=== PATIENT | male | born 1980 | race Asian ===

== ENCOUNTER 2020-05-25 19:47 | Emergency (ER) | payer OTHER ==
[~2020-05-25] VITALS: Ht 160 cm; Wt 52.0 kg
[2020-05-25 20:59] LABS: BASO % 0 % (0-3); EOS % 0 % (0-3); HEMATOCRIT 40.9 % (39.0-53.0); HEMOGLOBIN 14.2 g/dL (13.0-17.5); LYMPH # 1.2 x10^3/uL (1.0-4.8); LYMPH % 9 % (24-48); MEAN CORPUSCULAR HEMOGLOBIN 30 pg (25-35); MEAN CORPUSCULAR HGB CONC 35 g/dL (31-37); MEAN CORPUSCULAR VOLUME 86 fL (79-100); MONO % 7 % (0-9); NEUT # 11.8 x10^3/uL (1.8-7.7); NEUT % 84 % (31-73); PLATELET COUNT 202 x10^3/uL (140-400); RED BLOOD COUNT 4.76 x10^6/uL (4.30-5.70); RED CELL DISTRIBUTION WIDTH 12.7 % (11.5-14.5); WHITE BLOOD COUNT 14.1 x10^3/uL (4.0-11.0)
[2020-05-25] MEDS ORDERED: IV NORMAL SALINE 1000ML BAG 1,000 ML IV ONE (21:00)
[2020-05-25] MEDS ORDERED: fentaNYL PF VIAL 100 MCG/2 ML VIAL IVP ONE (21:00)
[2020-05-25 21:08] LABS: CALCIUM 8.9 mg/dL (8.5-10.1); CREATININE 0.8 mg/dL (0.7-1.3); GFR 107.6; POTASSIUM 3.3 mmol/L (3.5-5.1)
[2020-05-25 21:13] LABS: ALBUMIN 3.6 g/dL (3.4-5.0); ALBUMIN/GLOBULIN RATIO 0.8 (1.0-1.7); TOTAL BILIRUBIN 1.3 mg/dL (0.2-1.0); TOTAL PROTEIN 7.9 g/dL (6.4-8.2)
[2020-05-25] MEDS ORDERED: IOHEXOL 300 MG/ML 100ML VIAL. IV ONE (21:15)
--- NOTE | 2020-05-25 21:49 | RAD ---
CT ABDOMEN+PELVIS W History: Reason: RLQ PAIN MCBURNEY POINT TENDERNESS / Spl. Instructions: [id number] [phone] / History: Technique: After the administration of intravenous contrast, CT imaging was performed of the abdomen and pelvis. Multiplanar images are reviewed. Exposure: One or more of the following individualized dose reduction techniques were utilized for thi s examination: 1. Automated exposure control 2. Adjustment of the mA and/or kV according to patient size 3. Use of iterative reconstruction technique. Comparison: None Findings: Lower chest: No consolidation or pleural effusion. Abdomen and pelvis: The liver, spleen, adrenal glands, pancreas and gallbladder are unremarkable. No biliary ductal dilatation. Patent portal and hepatic veins. Malrotation of the kidneys. No hydronephr osis. Bilateral extrarenal pelvises. No renal calculi. Normal appendix. No evidence of bowel obstruction. No pathologic lymphadenopathy. No ascites. Bones: No pathologic osseous lesions. Impression: 1. No acute abdominal or pelvic pathology. Electronically signed by: Taqueria Ferguson DO (05/25/2020 9:47 PM) [facility]
[2020-05-25 21:55] LABS: BILIRUBIN,URINE NEGATIVE (NEG); CLARITY,URINE CLEAR; COLOR,URINE YELLOW; NITRITE,URINE NEGATIVE (NEG); PH,URINE 7.5 (<5.0-8.0); PROTEIN,URINE NEGATIVE (NEG-TRACE); UROBILINOGEN,URINE 0.2 mg/dL (0.2 mg/dL)
[2020-05-25 22:09] LABS: BACTERIA,URINE FEW /HPF (0-FEW); WBC,URINE OCC /HPF (0-4)
[2020-05-25 22:10] LABS: RBC,URINE 0 /HPF (0-2)
--- NOTE | 2020-05-25 22:11 | PHYS DOC ---
Past Medical History Past Medical History: No Pertinent History (JAY RIVERA APRN) Past Surgical History: Other Additional Past Surgical Histo: throat (JAY RIVERA APRN) Smoking Status: Never Smoker Alcohol Use: None (JAY RIVERA APRN) General Adult EDM: Chief Complaint: ABDOMINAL PAIN HPI: HPI: Patient is a 40 year old male presents to the emergency department complaining of sudden onset of right lower quadrant pain while working today at approximately 9 AM. Patient did not take anything for his pain. Patient denies nausea, vomiting, diarrhea, or constipation. Patient denies any recent fever or chills, patient denies any other physical complaints or physical symptoms. (JAY RIVERA APRN) Review of Systems: Review of Systems: 14 body systems of review of systems have been reviewed. See HPI for pertinent positives and negative responses, otherwise all other systems are negative, nonpertinent or noncontributory. (JAY RIVERA APRN) Heart Score: Risk Factors: Risk Factors: DM, Current or recent (<one month) smoker, HTN, HLP, family history of CAD, obesity. Risk Scores: Score 0 - 3: 2.5% MACE over next 6 weeks - Discharge Home Score 4 - 6: 20.3% MACE over next 6 weeks - Admit for Clinical Observation Score 7 - 10: 72.7% MACE over next 6 weeks - Early Invasive Strategies (JAY RIVERA APRN) Current Medications: Patient denies taking medications [id number] or prescription. Current Medications Medications (Trade) Dose Ordered Sig/Celi Start Time Stop Time Status Last Admin Dose Admin Fentanyl Citrate (Fentanyl 2ml Vial) 50 mcg 1X ONCE 05/25/20 21:00 05/25/20 21:01 DC 05/25/20 21:47 50 MCG Iohexol (Omnipaque 300 Mg/ml) 75 ml 1X ONCE 05/25/20 21:15 05/25/20 21:16 DC 05/25/20 21:22 75 ML Sodium Chloride 1,000 ml @ 1,000 mls/hr 1X ONCE 05/25/20 21:00 05/25/20 21:59 DC 05/25/20 21:47 1,000 MLS/HR (JAY RIEVRA APRN) Allergies: Allergies: Allergies Coded Allergies Type Severity Reaction Last Updated Verified No Known Drug Allergies 05/25/20 No (JAY RIVERA APRN) Physical Exam: PE: Constitutional: Well developed, well nourished, no acute distress, non-toxic appearance. HENT: Normocephalic, atraumatic, bilateral external ears normal, oropharynx moist, no oral exudates, nose normal. Eyes: PERRLA, EOMI, conjunctiva normal, no discharge. Neck: Normal range of motion, no tenderness, supple, no stridor. Cardiovascular:Heart rate regular rhythm, no murmur Lungs & Thorax: Bilateral breath sounds clear to auscultation Abdomen: Bowel sounds normal, soft, , no masses, no pulsatile masses. McBurney's point tenderness to palpation, negative psoas sign, negative Mirza sign, negative rebound tenderness. Skin: Warm, dry, no erythema, no rash. Back: No tenderness, no CVA tenderness. Extremities: No tenderness, no cyanosis, no clubbing, ROM intact, no edema. Neurologic: Alert and oriented X 3, normal motor function, normal sensory function, no focal deficits noted. Psychologic: Affect normal, judgement normal, mood normal. (JAY RIVERA APRN) Current Patient Data: Labs: Laboratory Tests Test 05/25/20 20:10 White Blood Count 14.1 x10^3/uL (4.0-11.0) H Red Blood Count 4.76 x10^6/uL (4.30-5.70) Hemoglobin 14.2 g/dL (13.0-17.5) Hematocrit 40.9 % (39.0-53.0) Mean Corpuscular Volume 86 fL (79-100) Mean Corpuscular Hemoglobin 30 pg (25-35) Mean Corpuscular Hemoglobin Concent 35 g/dL (31-37) Red Cell Distribution Width 12.7 % (11.5-14.5) Platelet Count 202 x10^3/uL (140-400) Neutrophils (%) (Auto) 84 % (31-73) H Lymphocytes (%) (Auto) 9 % (24-48) L Monocytes (%) (Auto) 7 % (0-9) Eosinophils (%) (Auto) 0 % (0-3) Basophils (%) (Auto) 0 % (0-3) Neutrophils # (Auto) 11.8 x10^3/uL (1.8-7.7) H Lymphocytes # (Auto) 1.2 x10^3/uL (1.0-4.8) Monocytes # (Auto) 1.0 x10^3/uL (0.0-1.1) Eosinophils # (Auto) 0.0 x10^3/uL (0.0-0.7) Basophils # (Auto) 0.0 x10^3/uL (0.0-0.2) Sodium Level 133 mmol/L (136-145) L Potassium Level 3.3 mmol/L (3.5-5.1) L Chloride Level 102 mmol/L (98-107) Carbon Dioxide Level 26 mmol/L (21-32) Anion Gap 5 (6-14) L Blood Urea Nitrogen 10 mg/dL (8-26) Creatinine 0.8 mg/dL (0.7-1.3) Estimated GFR (Cockcroft-Gault) 107.6 BUN/Creatinine Ratio 13 (6-20) Glucose Level 94 mg/dL (70-99) Calcium Level 8.9 mg/dL (8.5-10.1) Total Bilirubin 1.3 mg/dL (0.2-1.0) H Aspartate Amino Transferase (AST) 35 U/L (15-37) Alanine Aminotransferase (ALT) 37 U/L (16-63) Alkaline Phosphatase 74 U/L (46-116) Total Protein 7.9 g/dL (6.4-8.2) Albumin 3.6 g/dL (3.4-5.0) Albumin/Globulin Ratio 0.8 (1.0-1.7) L Lipase 47 U/L (73-393) L Laboratory Tests 05/25/20 20:10 Laboratory Tests 05/25/20 20:10 Vital Signs: Vital Signs Date Time Temp Pulse Resp B/P (MAP) Pulse Ox O2 Delivery O2 Flow Rate FiO2 05/25/20 21:47 16 Room Air 05/25/20 20:05 98.9 96 116/71 (86) 100 98.9 (JAY RIVERA APRN) EKG: EKG: [] (JAY RIVERA APRN) Radiology/Procedures: Radiology/Procedures: SEX: M EXAM STATUS: REG ER ORD. PHYSICIAN: JAY RIVERA APRN REASON: RLQ PAIN MCBURNEY POINT TENDERNESS PROCEDURE: CT ABD PELV W/ IV CONTRST ONLY CT ABDOMEN+PELVIS W History: Reason: RLQ PAIN MCBURNEY POINT TENDERNESS / Spl. Instructions: [id number] [phone] / History: Technique: After the administration of intravenous contrast, CT imaging was performed of the abdomen and pelvis. Multiplanar images are reviewed. Exposure: One or more of the following individualized dose reduction techniques were utilized for this examination: 1. Automated exposure control 2. Adjustment of the mA and/or kV according to patient size 3. Use of iterative reconstruction technique. Comparison: None Findings: Lower chest: No consolidation or pleural effusion. Abdomen and pelvis: The liver, spleen, adrenal glands, pancreas and gallbladder are unremarkable. No biliary ductal dilatation. Patent portal and hepatic veins. Malrotation of the kidneys. No hydronephrosis. Bilateral extrarenal pelvises. No renal calculi. Normal appendix. No evidence of bowel obstruction. No pathologic lymphadenopathy. No ascites. Bones: No pathologic osseous lesions. Impression: 1. No acute abdominal or pelvic pathology. Electronically signed by: Taqueria Ferguson DO (05/25/2020 9:47 PM) [facility] DICTATED and SIGNED BY: TAQUERIA FERGUSON DO DATE: 05/25/20 [id number] (JAY RIVERA APRN) Course & Med Decision Making: Course & Med Decision Making Pertinent Labs and Imaging studies reviewed. (See chart for details) 40-year-old male presents emergency department complaining of right lower quadrant pain while working today at approximately 9 AM. Patient states the pain lasted all day. Physical exam was concerning for appendicitis, appendicitis work-up was initiated in the emergency department. 1 L IV normal saline was initiated along with [address] abdomen pelvis with IV contrast read negative by house radiologist interpretation. Patient's labs showed hypokalemia of 3.3, patient was treated in the ED today with 40 mEq of p.o. potassium. Patient had a slight increase of white blood cell count with a slight neutrophilia, this is most likely a stress reaction from pain all day as patient's vital signs remained within normal limits and stable throughout ER stay, and negative CT abdomen read by house radiologist. Pain is most likely musculoskeletal in nature. Patient's pain was relieved with IV pain medicine. Discussed with patient will start on ibuprofen for pain, return to emergency department for worsening symptoms or other concerns, patient gave verbal understanding of discharge home instructions, return to ER precautions, follow-up with primary care soon, had no questions or concerns were discharged home without incident. Impression: #1 abdominal pain #2 hypokalemia (JAY RIVERA APRN) Course & Med Decision Making I oversaw on the above date of service of this patient and discussed the care with the GYN. I agree with the findings, plan of care, and disposition as documented. (ALFONSO MEADOWS DO) Dragon Disclaimer: Dragon Disclaimer: This electronic medical record was generated, in whole or in part, using a voice recognition dictation system. (JAY RIVERA APRN) Departure Departure Impression: Primary Impression: Abdominal pain Qualified Codes: R10.31 - Right lower quadrant pain Additional Impression: Hypokalemia Disposition: 01 DC HOME SELF CARE/HOMELESS Condition: IMPROVED Referrals: NO PCP (PCP) Patient Instructions: Abdominal Pain Additional Instructions: Please take prescribed medications as directed, please follow-up with your primary care doctor for further abdominal pain, return to the emergency department for worsening symptoms or other concerns. We have checked you for a n appendicitis, we have checked you for abdominal injury. The CT scan did not show any concerning findings. EMERGENCY DEPARTMENT GENERAL DISCHARGE INSTRUCTIONS Thank you for coming to [facility] Emergency Department (ED) today and trusting us with you care. We trust that you had a positive experience in our Emergency Department. If you wish to speak to the department management, you may call the Director at [phone]. YOUR FOLLOW UP INSTRUCTIONS ARE FOLLOWS: 1. Do you have a private Doctor? If you do not have a private doctor, please ask for a resource list of physicians or clinics that may be able to assist you with follow up care. 2. The Emergency Physicain has interpreted your x-rays. The X-Ray specialist will also review them. If there is a change in the findings, you will be notified in 48 hours when at all possible. 3. A lab test or culture has been done, your results will be reviewed and you will be notified if you need a change in treatment. ADDITIONAL INSTRUCTIONS AND INFORMATION: 1. Your care today has been supervised by a physician who is specially trained in emergency care. Many problems require more than one evaluation for a complete diagnosis and treatment. We recommend that you schedule your follow up appointment as recommended to ensure complete treatment of you illness or injury. If you are unable to obtain follow up care and continue to have a problem, or if your condition worsens, we recommend that you return to the ED. 2. We are not able to safely determine your condition over the phone nor are we able to give sound medical advice over the phone. For these safety reasons, if you call for medical advice we will ask you to come to the ED for further evaluation. 3. If you have any questions regarding these discharge instructions please call the ED at [phone]. SAFETY INFORMATION: In the interest of safety, wellness, and injury prevention; we encourage you to wear your sealbelt, if you smoke; quite smoking, and we encourage family to use a protective helmet for bicycling and other sporting events that present an increased risk for head injury. IF YOUR SYMPTOMS WORSEN OR NEW SYMPTOMS DEVELOP, OR YOU HAVE CONCERNS ABOUT YOUR CONDITION; OR IF YOUR CONDITION WORSENS WHILE YOU ARE WAITING FOR YOUR FOLLOW UP APPOINTMENT; EITHER CONTACT YOUR PRIMARY CARE DOCTOR, THE PHYSICIAN WHOSE NAME AND NUMBER YOU WERE GIVEN, OR RETURN TO THE ED IMMEDIATELY. Scripts Ibuprofen (IBUPROFEN) 600 Mg Tablet 600 MG PO PRN Q6HRS PRN for PAIN, #20 TAB 0 Refills Prov: JAY RIVERA APRN 05/26/20 JAY RIVERA APRN May 25, 2020 22:11 ALFONSO MEADOWS DO May 28, 2020 00:26
[2020-05-26] MEDS ORDERED: POTASSIUM CHLORIDE 20 MEQ TABLET.ER. PO ONE (00:15)
[2020-05-26] MEDS ORDERED: IBUP-1007 PO (00:18)
[2020-05-26 00:23] VITALS: BP 101/70
== END 2020-05-26 00:31 | disposition home or self-care (01) ==
LOC: ER 19:47
DX: R10.31 Right lower quadrant pain (principal); E87.6 Hypokalemia; Z98.890 Other specified postprocedural states
CPT/HCPCS: 36415; 74177; 80053; 81001; 83690; 85025; 96361; 96374; 99285; J3010; J7030; Q9967

== ENCOUNTER 2020-11-10 16:37 | Emergency (ER) | payer OTHER ==
[~2020-11-10] VITALS: Ht 160 cm; Wt 54.5 kg
[~2020-11-10 16:37] MED LIST: IBUP-1007 PO
[2020-11-10 17:14] VITALS: BP 119/72
[2020-11-10] MEDS ORDERED: LIDOCAINE (700MG/PATCH) PATCH. TD ONE (17:15)
--- NOTE | 2020-11-10 17:31 | ED.ADGEN ---
Past Medical History Past Medical History: No Pertinent History Past Surgical History: Other Additional Past Surgical Histo: throat Smoking Status: Never Smoker Alcohol Use: None General Adult EDM: Chief Complaint: RIB PAIN HPI: HPI: Patient is a 40 year old male coming in for right anterior rib pain after a fall 6 days ago. Patient was standing on some stairs and painting when he fell down and landed onto his right ribs. Denies any other injury or loss of consciousness. Has not been seen for this prior. Is here today because he is concerned that he is still having pain Review of Systems: Review of Systems: All other systems within normal limits except for as noted in the HPI Current Medications: Current Medications Medications (Trade) Dose Ordered Sig/Celi Start Time Stop Time Status Last Admin Dose Admin Lidocaine (Lidoderm) 1 patch 1X ONCE 11/10/20 17:15 11/10/20 17:16 DC 11/10/20 17:31 1 PATCH Allergies: Allergies: Allergies Coded Allergies Type Severity Reaction Last Updated Verified No Known Drug Allergies 05/25/20 No Physical Exam: PE: Constitutional: Well developed, well nourished, no acute distress, non-toxic appearance. [] HENT: Normocephalic, atraumatic, bilateral external ears normal, nose normal. [] Eyes: PERRLA, conjunctiva normal, no discharge. [] Neck: No rigidity, supple, no stridor. [] Cardiovascular: Regular rate and rhythm, brisk cap refill [] Lungs & Thorax: Non labored symmetric respirations, no tachypnea or respiratory distress. Tenderness over right anterior ribs around ribs 5-7. No crepitus or deformity [] Abdomen: Soft, nondistended. Skin: Warm, dry, no erythema, no rash. [] Back: Unremarkable Extremities: No deformities, range of motion grossly intact, no lower extremity edema [] Neurologic: Alert and oriented X 3, no focal deficits noted. [] Psychologic: Affect normal, judgement normal, mood normal. [] Current Patient Data: Vital Signs: Vital Signs Date Time Temp Pulse Resp B/P (MAP) Pulse Ox O2 Delivery O2 Flow Rate FiO2 11/10/20 17:14 98.0 65 18 119/72 (88) 100 Room Air 98.0 EKG: EKG: [] Heart Score: C/O Chest Pain: N/A Risk Factors: Risk Factors: DM, Current or recent (<one month) smoker, HTN, HLP, family history of CAD, obesity. Risk Scores: Score 0 - 3: 2.5% MACE over next 6 weeks - Discharge Home Score 4 - 6: 20.3% MACE over next 6 weeks - Admit for Clinical Observation Score 7 - 10: 72.7% MACE over next 6 weeks - Early Invasive Strategies Radiology/Procedures: Radiology/Procedures: [facility] [address] [place] [address] IMAGING REPORT Signed PATIENT: HALEY ANAND ACCOUNT: [id number] : 1980 LOCATION: ER AGE: 40 SEX: M EXAM STATUS: REG ER ORD. PHYSICIAN: RANDOLPH RAIN MD REASON: right rib fractures PROCEDURE: CT CHEST WO CONTRAST Exam: CT of chest without contrast INDICATION: Right rib fractures TECHNIQUE: Sequential axial images through the chest obtained without IV contrast. Sagittal and coronal reformatted images were reconstructed from the axial data and reviewed. Exposure: One or more of the following in the visualized dose reduction techniques were utilized for this examination: 1. Automated exposure control 2. Adjustment of the MA and/or KV according to patient size 3. Use of iterative of reconstructive technique Comparisons: None FINDINGS: Visualized portions of the thyroid are unremarkable. No enlarged mediastinal lymph nodes are identified. Heart size is normal. No pericardial effusion. Thoracic aorta has a normal course and caliber. Pulmonary artery is not enlarged. Airways are patent. No consolidation or pneumothorax. No suspicious lung nodules. No pleural effusion or thickening. Visualized upper abdomen is unremarkable. No suspicious osseous lesions or acute fractures. IMPRESSION: No sequela of acute traumatic injury identified within the chest. No rib fractures identified. Electronically signed by: Juventino Guaman MD (11/10/2020 5:34 PM) [facility] DICTATED and SIGNED BY: JUVENTINO GUAMAN MD DATE: 11/10/20 [id number] [] Course & Med Decision Making: Course & Med Decision Making Pertinent Labs and Imaging studies reviewed. (See chart for details) [] Dragon Disclaimer: [place] Disclaimer: This electronic medical record was generated, in whole or in part, using a voice recognition dictation system. Departure Departure Impression: Primary Impression: Contusion of rib on right side Disposition: HOME / SELF CARE / HOMELESS Condition: STABLE Referrals: NO PCP (PCP) Patient Instructions: Rib Contusion Scripts Lidocaine (Lidocaine) 1 Each Adh..patch 1 EACH TP PRN BID PRN for PAIN for 10 Days, #20 PATCH Prov: RANDOLPH RAIN MD 11/10/20 Ibuprofen (IBUPROFEN) 800 Mg Tablet 800 MG PO PRN Q8HRS PRN for PAIN for 10 Days, #30 TAB Prov: RANDOPLH RAIN MD 11/10/20 RANDOLPH RAIN MD Nov 10, 2020 17:31
--- NOTE | 2020-11-10 17:36 | RAD ---
Exam: CT of chest without contrast INDICATION: Right rib fractures TECHNIQUE: Sequential axial images through the chest obtained without IV contrast. Sagittal and coron al reformatted images were reconstructed from the axial data and reviewed. Exposure: One or more of the following in the visualized dose reduction techniques were utilized for this examination: 1. Automated exposure control 2. Adjustment of the MA and/or KV according to patient size 3. Use of iterative of reconstructive technique Comparisons: None FINDINGS: Visualized portions of the thyroid are unremarkable. No enlarged mediastinal lymph nodes are identifi ed. Heart size is normal. No pericardial effusion. Thoracic aorta has a normal course and caliber. Pulmon tavon artery is not enlarged. Airways are patent. No consolidation or pneumothorax. No suspicious lung nodules. No pleural effusion or thickening. Visualized upper abdomen is unremarkable. No suspicious osseous lesions or acute fractures. IMPRESSION: No sequela of acute traumatic injury identified within the chest. No rib fractures identified. Electronically signed by: Juventino Rivera MD (11/10/2020 5:34 PM) [facility]
[2020-11-10] MEDS ORDERED: IBUP-1060 PO (17:38)
[2020-11-10] MEDS ORDERED: LIDO1ADH63 TP (17:38)
== END 2020-11-10 17:55 | disposition home or self-care (01) ==
LOC: ER 16:37
DX: S20.211A Contusion of right front wall of thorax, initial encounter (principal); W10.8XXA Fall (on) (from) other stairs and steps, initial encounter; Y93.89 Activity, other specified; Y92.89 Other specified places as the place of occurrence of the external cause; Y99.8 Other external cause status
CPT/HCPCS: 71250; 99284-25